=== PATIENT | female | born 1960 | race Two or more races ===

== ENCOUNTER → 2025-04-19 | Outpatient (BNVA) | payer MEDICARE, MEDICAID, SELFPAY | END | disposition home or self-care (01) | PROVIDERS: PCP Student in an Organized Health Care Education/Training Program; Referring Provider Student in an Organized Health Care Education/Training Program; Visit Provider Urology | DX: N32.81 Overactive bladder (principal); E13.51 Other specified diabetes mellitus with diabetic peripheral angiopathy without gangrene; E13.42 Other specified diabetes mellitus with diabetic polyneuropathy; Z87.440 Personal history of urinary (tract) infections; I10 Essential (primary) hypertension; E78.00 Pure hypercholesterolemia, unspecified; E03.9 Hypothyroidism, unspecified | CPT/HCPCS: 81003; 99212; G0463 ==

== ENCOUNTER 2025-05-13 09:34 | Inpatient (IN) | payer MEDICARE, MEDICAID, SELFPAY ==
[2025-05-13] VITALS (9 sets, daily range): BP systolic 86–152; BP diastolic 52–95; PULSE 71–97; RESP 16–24; TEMP 36.6–39; O2SAT 94–98; BMI 32.3
--- NOTE | 2025-05-13 09:52 | XR_ITS ---
Examination: AP chest single view Technique : AP portable supine chest single view Date and time: May 13, 2025 1038 hours INDICATIONS: Coughing shortness of breath today. FINDINGS: Diffuse left lung and mild right base pneumonia Normal heart size Prominent osteopenia IMPRESSION: Bilateral pneumonia, diffuse and significant in the left lung MTDD
--- NOTE | 2025-05-13 09:52 | XR_ITS ---
Examination: CT brain head without contrast. 2-D sagittal coronal reconstructions Date and time of exam:May 13, 2025, 1030 hours INDICATIONS: Altered mental status this morning CTDI: vol (mGy):46.7 DLP: (mGycm):973 Technique: Multiple CT axial sections of the brain have been obtained, 5 mm slice thickness. Contrast has not been administered. 2-D sagittal, coronal reconstructions have been obtained Low dose protocols were performed. One or more of the following dose reduction techniques were used; automated exposure control, adjustment of the mA and/or KV according to patient size, use of iterative reconstruction technique. Findings: No significant ventricular enlargement. Intra-axial or extra-axial hemorrhage density is not seen. No mass effect or midline shift Basal cisterns are not remarkable. Fourth ventricle is midline. Cranial vault intact. Impression: Negative for acute hemorrhage, mass effect or midline shift
--- NOTE | 2025-05-13 09:52 | EKG_ITS ---
[facility] Test Date: 2025-05-13 Pat Name: ALEXANDER BUTLER Department: Room: - Gender: Female [employer] Technician: : 1960 Requested By: Pedro Luis Zavala Order Number: [id number] Reading MD: Pedro Luis Zavala Measurements Intervals [place] Rate: 96 P: 26 [place]: 132 QRS: -39 QRSD: 89 T: -56 QT: 316 QTc: 401 Interpretive Statements SINUS RHYTHM LEFT AXIS DEVIATION [QRS AXIS < -30] PATTERN CONSISTENT WITH PULMONARY DISEASE MODERATE T-WAVE ABNORMALITY, CONSIDER ANTERIOR ISCHEMIA [-0.1+ mV T-WAVE IN V3/V4] Compared to ECG 07/20/2024 12:28:52 Possible ischemia now present T-wave abnormality still present /store/S0/[id number]/ecg/[id number].pdf
--- NOTE | 2025-05-13 09:53 | PD.EDRME ---
Rapid Medical Screening Exam [facility] Arrival date/time: 05/13/25 09:34 64-year-old female with a history of developmentally delayed, type 2 diabetes, presents to the emergency room with a chief complaint of a fever, abnormal baseline, generalized weakness and increased lethargy x 2 days. Caregiver also states that the patient normally walks with a walker and has stopped walking and is now leaning to her left side on her wheelchair. This all began yesterday afternoon. I have greeted and performed a focused initial assessment of this patient. A comprehensive ED assessment and evaluation of the patient, analysis of all test results, and completion of the medical decision making process will be conducted by additional ED providers. Chief Complaint: Dizziness Time Seen by Provider: 05/13/25 09:37 Vital signs: Vital Signs Temperature 102.2 F H 05/13/25 09:49 Pulse Rate 97 05/13/25 09:49 Respiratory Rate 24 H 05/13/25 09:49 Blood Pressure 129/84 05/13/25 09:49 Pulse Oximetry (%) 94 L 05/13/25 09:49 Oxygen Delivery Method Room Air 05/13/25 09:49 Vital signs reviewed by provider: Yes
[2025-05-13] MEDS: ACETAMINOPHEN 500 MG TABLET 1000 MG PO (10:21)
--- NOTE | 2025-05-13 10:34 | PD.EDADULT ---
ED General RME/HPI General Chief complaint: Dizziness Stated complaint: DIZZY, HIGH HEART RATE, LOW O2 SINCE YESTERDAY Time Seen by Provider: 05/13/25 09:37 Arrival date/time: 05/13/25 09:34 Limitations: no limitations RME / HPI RME / HPI narrative: 05/13/25 09:34 64-year-old female with a history of developmentally delayed, type 2 diabetes, presents to the emergency room with a chief complaint of a fever, abnormal baseline, generalized weakness and increased lethargy x 2 days. Caregiver also states that the patient normally walks with a walker and has stopped walking and is now leaning to her left side on her wheelchair. This all began yesterday afternoon. I have greeted and performed a focused initial assessment of this patient. A comprehensive ED assessment and evaluation of the patient, analysis of all test results, and completion of the medical decision making process will be conducted by additional ED providers. DR. MCMAHAN MAIN ED EVALUATION: 64 year old female with history of medication induced Parkinson's, intellectual disability, hypothyroidism, diabetes, peripheral vascular disease, osteoarthritis presents to the ED brought in by caregiver for multiple complaints. Per the caregiver, the patient urinated on herself twice last night which is unusual for her, has had a change in her demeanor, and is stumbling more than normal . Additionally reported a change in her vital signs; at baseline HR is mid 70s and today was 104, saturating 91-92% on room air and at baseline is 98-99%. No fevers measured at home. No vomiting, diarrhea, or appearance of painful urination. Related Data Home Medications ?Medication ?Instructions ?Recorded ?Confirmed amlodipine 5 mg tablet 5 mg PO DAILY 03/25/23 04/19/25 divalproex 250 mg tablet,delayed 500 mg PO BID BEHAVIOR 03/25/23 04/19/25 release docusate sodium 100 mg capsule 100 mg PO BID 03/25/23 04/19/25 levothyroxine 100 mcg tablet 100 mcg PO DAILY 03/25/23 04/19/25 loratadine 10 mg tablet 10 mg PO DAILY 03/25/23 04/19/25 metformin 500 mg tablet 500 mg PO BID 03/25/23 04/19/25 mirtazapine 30 mg tablet 15 mg PO HS 03/25/23 04/19/25 tmqwaacc-bed-uzqla ac 400 1 tab PO DAILY 03/25/23 04/19/25 mcg-calcium carb 500 mg-vit K1 20 mcg tablet (Women's 50 Plus Multivitamin) oxybutynin chloride 5 mg 5 mg PO DAILY 03/25/23 04/19/25 tablet,extended release 24 hr quetiapine 100 mg tablet 50 mg PO BID 03/25/23 04/19/25 sertraline 100 mg tablet 50 mg PO DAILY 03/25/23 04/19/25 simvastatin 20 mg tablet 20 mg PO HS 03/25/23 04/19/25 alprazolam 0.25 mg tablet (Xanax) 0.25 mg PO BID PRN Anxiety 07/20/24 04/19/25 buspirone 5 mg tablet 5 mg PO BID 07/20/24 04/19/25 potassium chloride 8 mEq 8 meq PO QDAY 07/20/24 04/19/25 tablet,extended release (Klor-Con) risperidone 0.5 mg tablet 0.5 mg PO BID 07/20/24 04/19/25 sodium chloride 1 gram tablet 1,000 mg PO BID 07/20/24 04/19/25 Previous Rx's ?Medication ?Instructions ?Recorded lactulose 10 gram/15 mL oral 20 g (30 mL) PO BID PRN 10/18/23 solution constipation #237 mL Allergies Allergy/AdvReac Type Severity Reaction Status Date / Time No Known Allergies Allergy Verified 05/13/25 09:38 Review of Systems Review of Systems Systems Reviewed: All systems reviewed, normal except as documented Past Medical History Past Medical History CARDIAC: Positive Cardiac Disorders, Peripheral Vascular Disease, Hypercholesterolemia and Hypertension MUSCULOSKELETAL: Positive Musculoskeletal Disorders and Arthritis (OSTEO) ENT: Positive Cataracts (not mature) ENDOCRINE: Positive Endocrine Disorders, Diabetes Mellitus Type 2 and Hypothyroidism HEMATOLOGIC: Positive Blood Disorders and Anemia (IRON DEFICIENCY) PSYCHO/SOCIAL: Positive Bipolar Disorder, Depression and Anxiety (PANIC DISORDER) OTHER HISTORY: Positive Developmental Delay (Mild intellectual disability) Family History FAMILY HISTORY: Negative Family Psychiatric Problems, Family Respiratory Disorders, Family Cardiac Disorders, Family Gastrointestinal Problems, Family Cancer, Family Surgery or Family Anesthesia Reaction Social History SMOKING STATUS: Never smoker ED Exam General Limitations: Present no limitations General appearance: Present alert and in no apparent distress Head Head exam: Present atraumatic Eye Eye exam: Present normal appearance, PERRL and EOMI ENT ENT exam: Present normal exam, normal oropharynx and mucous membranes moist Neck Neck exam: Present normal inspection, full ROM and trachea midline Chest Chest inspection: Present normal inspection and symmetric chest wall rise Respiratory Respiratory exam: Present other (Crackles left base ) Cardiovascular Cardiovascular exam: Present regular rate, normal rhythm and normal heart sounds Abdominal Exam Abdominal exam: Present soft and normal bowel sounds Extremities Exam Extremities exam: Present normal inspection and full ROM Back Exam Back exam: Present normal inspection and full ROM Neurological Exam Neurological exam: Present alert, CN II-XII intact and other (Baseline developmentally delayed ) Psychiatric Psychiatric exam: Present normal affect and normal mood Skin Skin exam: Present warm, dry, intact and normal color Course Quality Measures none Orders Category Date Time Status Bedside COVID-19 Antigen Test NOW Care 05/13/25 09:52 Active Bedside Influenza A&B Antigen Test NOW Care 05/13/25 09:52 Completed COVID-19 Screening Questionnaire NOW Care 05/13/25 13:22 Active Decision to Admit X1 Care 05/13/25 13:22 Completed EKG (ED ONLY) *Do not use* NOW Care 05/13/25 09:[address] head/brain wo con Stat Exams 05/13/25 09:52 Completed EKG (ED Only) Stat Exams 05/13/25 09:52 Draft XR chest 1V portable Stat Exams 05/13/25 09:52 Completed B-Type Natriuretic Peptide Stat Lab 05/13/25 10:20 Completed Blood Culture (Lab) Stat Lab 05/13/25 10:20 Received CBC Stat Lab 05/13/25 10:20 Completed CMP [Comprehensive Metabolic Panel] Stat Lab 05/13/25 10:20 Completed Lactate (Lactic Acid) Stat Lab 05/13/25 10:20 Completed Lactic Acid, 3 HR Stat Lab 05/13/25 13:59 Completed Partial Thromboplastin Time Stat Lab 05/13/25 10:20 Completed Procalcitonin Stat Lab 05/13/25 10:20 Completed Prothrombin Time with INR Stat Lab 05/13/25 10:20 Completed Troponin I Stat Lab 05/13/25 10:20 Completed Urinalysis, C/S if Indicated Stat Lab 05/13/25 12:08 Completed Urine Culture Stat Lab 05/13/25 12:08 Received Acetaminophen Tab [Tylenol ES Tab] Med 05/13/25 09:55 Discontinued 1,000 mg PO X1 ONE cefTRIAXone [Rocephin] 2 gm Med 05/13/25 13:13 Discontinued SODIUM CHLORIDE 0.9% (Popper) [Ns 0.9% (P)] 50 ml IV X1 Vital Signs Vital signs: Vital Signs Temperature 102.2 F H 05/13/25 09:49 Pulse Rate 97 05/13/25 09:49 Respiratory Rate 24 H 05/13/25 09:49 Blood Pressure 129/84 05/13/25 09:49 Pulse Oximetry (%) 94 L 05/13/25 09:49 Oxygen Delivery Method Room Air 05/13/25 09:49 Pulse ox is 94% on room air which is adequate. Discharge Plan Plan Patient Disposition: Admit Acute Care w/in Hospital Problem List Clinical Impression: Acute febrile illness, Tachycardia MDM Narrative [facility] hospital course: Ellie Coronel am scribing for and in the presence of Dr. Mcmahan. Clinical Information Provided by guardian (caregiver) Medical Records Reviewed [facility] I reviewed ED visit on 10/18/2023 Meds/Rx Considered, not Ordered None Labs/Rad/Tests considered, not Ordered None Chronic Illness/Social Conditions which may negatively complicate care or outcome(s)-explain: Developmentally delayed EKG Interpretation EKG #1: Date/time of EK05/13/25 10:57 AM EKG interpretation: NSR, rate 96, left axis deviation, no STEMI. Lab Interpretation Labs: interpreted by tn Lab(s) interpretation(s): No leukocytosis Elevated lactic acid at 3.2, procalcitonin within normal range UA is positive for infection Imaging Radiology reports / interpretation(s): Ordering Physician: Pedro Luis Torres Date of Service: 05/13/25 Procedure(s): XR chest 1V portable Accession Number(s): [id number] cc: Pedro Luis Torres; Pedro Ruby MD~ Examination: AP chest single view Technique : AP portable supine chest single view Date and time: May 13, 2025 1038 hours INDICATIONS: Coughing shortness of breath today. FINDINGS: Diffuse left lung and mild right base pneumonia Normal heart size Prominent osteopenia IMPRESSION: Bilateral pneumonia, diffuse and significant in the left lung Dictated By: Pedro Ruby MD Signed By: <Electronically signed by Pedro Ruby MD in OV> 05/13/25 1040 Ordering Physician: Pedro Luis Torres Date of Service: 05/13/25 Procedure(s): CT head/brain wo con Accession Number(s): [id number] cc: Pedro Luis Torres; Pdero Ruby MD~ Examination: CT brain head without contrast. 2-D sagittal coronal reconstructions Date and time of exam:May 13, 2025, 1030 hours INDICATIONS: Altered mental status this morning CTDI: vol (mGy):46.7 DLP: (mGycm):973 Technique: Multiple CT axial sections of the brain have been obtained, 5 mm slice thickness. Contrast has not been administered. 2-D sagittal, coronal reconstructions have been obtained Low dose protocols were performed. One or more of the following dose reduction techniques were used; automated exposure control, adjustment of the mA and/or KV according to patient size, use of iterative reconstruction technique. Findings: No significant ventricular enlargement. Intra-axial or extra-axial hemorrhage density is not seen. No mass effect or midline shift Basal cisterns are not remarkable. Fourth ventricle is midline. Cranial vault intact. Impression: Negative for acute hemorrhage, mass effect or midline shift Dictated By: Pedro Ruby MD Signed By: <Electronically signed by Pedro Ruby MD in OV> 05/13/25 1045 Medication Administration(s) Medication Administration History Acetaminophen (Acetaminophen 325 Mg Tablet) 650 mg PO Q6H PRN PRN Reason: Fever >101.5 Stop: 06/12/25 13:50 Albuterol/Ipratropium (Albuterol/Ipratropium (Duoneb) Rt Angely 3 Ml Nebu) 3 ml INH Q6HRRT PRN PRN Reason: SHORTNESS OF BREATH Stop: 06/12/25 18:59 Amlodipine Besylate (Amlodipine Besylate 2.5 Mg Tablet) 2.5 mg PO QDAY REPLACED BY [facility] Stop: 06/13/25 08:59 Divalproex Sodium (Divalproex Sod Dr 500 Mg Tablet.Dr) 500 mg PO BID REPLACED BY [facility] Stop: 06/12/25 20:59 Docusate Sodium (Docusate Sod 100 Mg Capsule) 100 mg PO BID REPLACED BY [facility]; Protocol Stop: 06/12/25 20:59 Doxycycline Hyclate (Doxycycline 100 Mg Tablet) 100 mg PO BID LEANDRA Stop: 05/20/25 14:44 Last Admin: 05/13/25 14:45 Dose: 100 mg Documented By: ASHLEIGH Enoxaparin Sodium (Enoxaparin Sod Inj 40 Mg/0.4 Ml Syringe) 40 mg SC QDAY REPLACED BY [facility] Stop: 05/27/25 13:59 Last Admin: 05/13/25 14:20 Dose: Not Given Documented By: ASHLEIGH Non-Admin Reason: Patient Refused Hydroxyzine HCl (Hydroxyzine Hcl 10 Mg Tablet) 10 mg PO Q8H PRN PRN Reason: ANXIETY Stop: 06/12/25 14:14 Levothyroxine Sodium (Levothyroxine Sodium 88 Mcg Tablet) 88 mcg PO ACBR REPLACED BY [facility] Stop: 06/13/25 05:59 Mirtazapine (Mirtazapine 15 Mg Tablet) 15 mg PO QPM LEANDRA Stop: 06/12/25 20:59 Ondansetron HCl (Ondansetron Inj 2 Mg/Ml Inj 2 Ml) 4 mg IVP Q6H PRN; Protocol PRN Reason: NAUSEA OR VOMITING Stop: 06/12/25 13:50 Pantoprazole Sodium (Pantoprazole 40 Mg Tablet) 40 mg PO QDAY LEANDRA Stop: 06/13/25 08:59 Quetiapine Fumarate (Quetiapine Fumarate 25 Mg Tablet) 50 mg PO QPM LEANDRA Stop: 06/12/25 20:59 Quetiapine Fumarate (Quetiapine Fumarate 25 Mg Tablet) 25 mg PO QAM REPLACED BY [facility] Stop: 06/13/25 08:59 Risperidone (Risperidone 0.5 Mg Tablet) 0.5 mg PO BID LEANDRA Stop: 06/12/25 20:59 Sertraline HCl (Sertraline Hcl 25 Mg Tablet) 50 mg PO QAM LEANDRA Stop: 06/13/25 08:59 Sodium Chloride (Sodium Chloride 1 Gm Tablet) 1 gm PO BID LEANDRA Stop: 06/12/25 20:59 Discontinued Medications Acetaminophen (Acetaminophen 500 Mg Tablet) 1,000 mg PO X1 ONE Stop: 05/13/25 09:56 Last Admin: 05/13/25 10:21 Dose: 1,000 mg Documented By: SYLVIA Ceftriaxone Sodium 2 gm/ (Sodium Chloride) 50 mls @ 100 mls/hr IV X1 ONE Stop: 05/13/25 13:42 Last Infusion: 05/13/25 15:24 Dose: Infused Documented By: Admin: 05/13/25 13:25 Dose: 100 mls/hr Documented By: ASHLEIGH Sodium Chloride (Sodium Chloride Rt 10% 15 Ml Nebu) 5 ml INH X1 ONE Stop: 05/13/25 14:38 See above Diagnosis Most likely dx, and/or detailed dx discussion: Acute febrile illness Tachycardia Dispositon Disposition: Admit
[2025-05-13 10:35] LABS: Lactate (Lactic Acid) 3.2 mMol/L (0.4-2.0)
[2025-05-13 10:37] LABS: Basophils # (Auto) 0.0 Thou/mm3 (0.0-0.2); Basophils % (Auto) 0 % (0-2.5); Eosinophils # (Auto) 0.0 Thou/mm3 (0.0-0.5); Eosinophils % (Auto) 0 % (0-10); Hematocrit 40.1 % (36.0-46.0); Hemoglobin 13.7 g/dL (12.0-16.0); Immature Granulocytes Auto 0.03 Thou/mm3 (0.00-0.00); Lymphocytes # (Auto) 1.0 Thou/mm3 (1.0-4.8); Lymphocytes % (Auto) 9 % (10-50); Mean Corpuscular HGB Conc 34.2 g/dl (31.0-37.0); Mean Corpuscular Hemoglobin 30.9 pg (25.0-35.0); Mean Corpuscular Volume 90 fL (80-100); Monocytes # (Auto) 1.7 Thou/mm3 (0.0-0.8); Monocytes % (Auto) 16 % (0-12); Neutrophils # (Auto) 8.2 Thou/mm3 (1.8-7.7); Neutrophils % (Auto) 75 % (37-80); Nucleated Red Blood Cell # 0.00 Thou/mm3 (0.00-0.00); Nucleated Red Blood Cell % 0 /100 WBC (0); Platelet Count 158 Thou/mm3 (140-440); RDW Standard Deviation 41.3 fL (36.4-46.3); Red Blood Count 4.44 Miln/mm3 (4.00-5.20); White Blood Count 10.9 Thou/mm3 (3.6-11.0)
[2025-05-13 10:53] LABS: INR 1.0 (0.9-1.3); Partial Thromboplastin Time 27.0 Seconds (22.0-36.0); Prothrombin Time 11.3 Seconds (9.0-12.2)
[2025-05-13 10:56] LABS: B-Type Natriuretic Peptide < 20 pg/mL (0-100)
[2025-05-13 11:03] LABS: Alanine Aminotransferase < 7 U/L (10-49); Albumin, Serum 4.2 gm/dL (3.4-4.8); Albumin/Globulin Ratio 1.4 (1.2-2.2); Alkaline Phosphatase 77 U/L (46-116); Anion Gap 13 (7-16); Aspartate Amino Transferase 18 U/L (0-34); BUN/Creatinine Ratio 13 Ratio (12-20); Bilirubin,Total 0.3 mg/dL (0.3-1.2); Blood Urea Nitrogen 10 mg/dL (9-23); Calcium 9.5 mg/dL (8.3-10.6); Calcium (Corrected) 9.5 mg/dL (8.5-10.1); Carbon Dioxide 25.5 mMol/L (20.0-31.0); Chloride 103 mMol/L (98-107); Creatinine (Component) 0.8 mg/dL (0.6-1.3); Estimated Creatinine Clearance 54.3 mL/min (>60); Globulin 3.0 gm/dL (2.3-3.5); Glucose 168 mg/dL (74-106); Osmolality,Calculated 284 (275-295); Potassium 4.0 mMol/L (3.4-5.1); Procalcitonin 0.29 ng/ml (0.0-0.49); Sodium 141 mMol/L (136-145); Total Protein 7.2 gm/dL (5.7-8.2); Troponin I < 0.002 ng/mL (0.0-0.045); eGFR > 60 See Note
[2025-05-13 12:21] LABS: Collection Type, Urine Clean Catch
[2025-05-13 12:45] LABS: Bacteria,Urine 1+; Bilirubin,Urine Negative (Negative); Blood,Urine 2+ (Negative); Color,Urine Yellow (Lt Yel-Yel); Glucose, Urine Negative (Negative); Ketones,Urine Trace (Negative); Leukocyte Esterase,Urine Positive (Negative); Nitrite,Urine Positive (Negative); PH,Urine 6.0 (5.0-7.0); Protein,Urine 1+ (Neg - Trace); RBC,Urine 17 /hpf (0-3); Specific Gravity,Urine 1.020 (1.001-1.035); Squamous Epithelial Cell,Urine 1 /hpf (0-5); Urobilinogen,Urine Negative mg/dL (0.0-1.0); WBC,Urine 1433 /hpf (0-5)
[2025-05-13 12:52] LABS: Clarity,Urine Cloudy (Clear/Hazy); Culture Indicated,Urine Yes
[2025-05-13] MEDS: cefTRIAXone 2 GM in SODIUM CHLORIDE 0.9% (Popper) 50 ML IV (13:25)
[2025-05-13 13:33] LABS: Reflex Lactate? Y
[2025-05-13 14:02] LABS: Lactic Acid, 3 HR 2.6 mMol/L (0.4-2.0)
--- NOTE | 2025-05-13 14:16 | PD.HHHP ---
Documentation for date of: 05/13/25 HPI - Hospitalist History of Present Illness History of present illness: Patient is unfortunate 64-year-old female with history of developmental delay, hypothyroidism, essential hypertension, hyperlipidemia, bipolar disorder, recent possible diagnosis of parkinsonism and dementia, who was brought in to our ER after 1 day history of fever, dizziness, confusion. Her caregiver Rocío is at bedside, patient is currently not able to provide appropriate history. Her eyes are closed she will wake up and answer questions shortly go back to sleep. Per caregiver she was recently seen at primary care physician office couple of weeks ago diagnosed with urinary tract infection prescribed Keflex 500 mg every 8 hours as well as Pyridium, took treatment improved but apparently last couple days has been getting worse again. She is normally more active able to ambulate but today when caregiver brought her to the emergency room patient was having hard time walking to the ER. Also was having chills no nausea vomiting diarrhea chest pain trouble breathing palpitations any known sick contacts. Per caregiver patient does have some cough last couple of days. Caregiver brought their facility chart for her, no POLST found no healthcare directives or living will?that I could find. Per caregiver patient was diagnosed parkinsonism likely medication induced with all her antipsychotics/antidepressants. Past medical history/social history/family/surgical history reviewed please see the chart Review of Systems Review of Systems Narrative Review of Systems: Review of system limited due to encephalopathy, otherwise please see above under HPI for pertinent positives negatives Meds Home Medications and Allergies Home Medications ?Medication ?Instructions ?Recorded ?Confirmed ?Type amlodipine 5 mg tablet 5 mg PO DAILY 03/25/23 04/19/25 History divalproex 250 mg tablet,delayed 500 mg PO BID BEHAVIOR 03/25/23 04/19/25 History release docusate sodium 100 mg capsule 100 mg PO BID 03/25/23 04/19/25 History levothyroxine 100 mcg tablet 100 mcg PO DAILY 03/25/23 04/19/25 History loratadine 10 mg tablet 10 mg PO DAILY 03/25/23 04/19/25 History metformin 500 mg tablet 500 mg PO BID 03/25/23 04/19/25 History mirtazapine 30 mg tablet 15 mg PO HS 03/25/23 04/19/25 History ljljvelk-gik-nglzj ac 400 1 tab PO DAILY 03/25/23 04/19/25 History mcg-calcium carb 500 mg-vit K1 20 mcg tablet (Women's 50 Plus Multivitamin) oxybutynin chloride 5 mg 5 mg PO DAILY 03/25/23 04/19/25 History tablet,extended release 24 hr quetiapine 100 mg tablet 50 mg PO BID 03/25/23 04/19/25 History sertraline 100 mg tablet 50 mg PO DAILY 03/25/23 04/19/25 History simvastatin 20 mg tablet 20 mg PO HS 03/25/23 04/19/25 History alprazolam 0.25 mg tablet (Xanax) 0.25 mg PO BID PRN Anxiety 07/20/24 04/19/25 History buspirone 5 mg tablet 5 mg PO BID 07/20/24 04/19/25 History potassium chloride 8 mEq 8 meq PO QDAY 07/20/24 04/19/25 History tablet,extended release (Klor-Con) risperidone 0.5 mg tablet 0.5 mg PO BID 07/20/24 04/19/25 History sodium chloride 1 gram tablet 1,000 mg PO BID 07/20/24 04/19/25 History Allergies Allergy/AdvReac Type Severity Reaction Status Date / Time No Known Allergies Allergy Verified 05/13/25 09:38 Exam Vital Signs Temp Pulse Resp BP Pulse Ox O2 Del Method 98.7 F 71 18 93/52 L 98 Room Air 05/13/25 13:30 05/13/25 13:30 05/13/25 13:30 05/13/25 13:36 05/13/25 13:30 05/13/25 13:30 Narrative GENERAL: seems to be in NAD, sleepy, HEENT: Head NC/A, PERRL CARDIOVASCULAR: RRR, no m/r/g/ RESPIRATORY: some wet rhonchi bilateral lower lung glaser, no wheezing GASTROINTESTINAL: Soft, non tender, no rebound tenderness INTEGUMENTARY: No jaundice, no apparent rash NEUROLOGICAL: unable to assess full neuroexam PSYCHIATRIC: Alert, not agitated MSK: No apparent joint effusion appreciated Results - Hospitalist Labs Diagrams: 05/13/25 10:20 05/13/25 10:20 Labs: Short CBC 05/13/25 Range/Units 10:20 WBC 10.9 (3.6-11.0) Thou/mm3 Hgb 13.7 (12.0-16.0) g/dL Hct 40.1 (36.0-46.0) % Plt Count 158 (140-440) Thou/mm3 BMP 05/13/25 10:20 Sodium 141 Potassium 4.0 Chloride 103 Carbon Dioxide 25.5 BUN 10 Creatinine 0.8 Glucose 168 H Calcium 9.5 Cardiac Enzymes 05/13/25 Range/Units 10:20 Troponin I < 0.002 (0.0-0.045) ng/mL Liver Function 05/13/25 Range/Units 10:20 Total Bilirubin 0.3 (0.3-1.2) mg/dL AST 18 (0-34) U/L ALT < 7 L (10-49) U/L Alkaline Phosphatase 77 (46-116) U/L Albumin 4.2 (3.4-4.8) gm/dL Urine 05/13/25 Range/Units 12:08 Urine Color Yellow (Lt Yel-Yel) Urine Clarity Cloudy A (Clear/Hazy) Urine pH 6.0 (5.0-7.0) Ur Specific [place] 1.020 (1.001-1.035) Urine Protein 1+ A (Neg - Trace) Urine Glucose (UA) Negative (Negative) Assessment & Plan -Hospitalist Additional Assessment Patient is 64-year-old female history developmental delay, bipolar disorder, hypothyroidism, hypertension, hyperlipidemia possible recent diagnosis of parkinsonism and dementia was brought in by her facility where she states that with fevers, admitted for sepsis requiring further evaluation and management. Blood cultures urine culture obtained patient given ceftriaxone 2 g in the emergency room, admitted for further workup. Had unremarkable CT abdomen. Sepsis, present admission without septic shock due to urinary tract infection as well as possible bacterial pneumonia Bilateral lower lung bacterial pneumonia suspected, community-acquired, likely gram-positive cocci Urinary tract infection, suspect cystitis present on admission not associated urinary catheter suspect gram-negative bacilli History of developmental delay Hypothyroidism acute encephalopathy suspect infectious due to above Essential hypertension Hyperlipidemia Lactic acidosis due to above Suspect bipolar disorder Anxiety -Pending urine 2 sets of blood cultures, continue 1 g ceftriaxone daily add azithromycin for atypical pneumonia coverage. Obtain sputum culture if she can make 1. Check TSH, free T4, ammonia level. Speech therapy evaluation will tentatively place her on dysphagia diet Continue appropriate home medications-, will hold oxybutynin for now due to encephalopathy - Monitor mental status and vitals closely. - case checker to help with disposition - physical therapy DVT prophylaxis?Lovenox subcu Pantoprazole for GI prophylaxis Full code?assumed, follow-up with facility/POLST or advance directives if there are some, anticipate stay 2 days for Disposition: Discharge back to facility, might need home health upon discharge. Quality Measures Quality Measures none
--- NOTE | 2025-05-13 14:27 | PD.HHHP ---
Documentation for date of: 05/13/25 HPI - Hospitalist History of Present Illness History of present illness: Patient is unfortunate 64-year-old female with history of developmental delay, hypothyroidism, essential hypertension, hyperlipidemia, bipolar disorder, recent possible diagnosis of parkinsonism and dementia, who was brought in to our ER after 1 day history of fever, dizziness, confusion. Her caregiver Rocío is at bedside, patient is currently not able to provide appropriate history. Her eyes are closed she will wake up and answer questions shortly go back to sleep. Per caregiver she was recently seen at primary care physician office couple of weeks ago diagnosed with urinary tract infection prescribed Keflex 500 mg every 8 hours as well as Pyridium, took treatment improved but apparently last couple days has been getting worse again. She is normally more active able to ambulate but today when caregiver brought her to the emergency room patient was having hard time walking to the ER. Also was having chills no nausea vomiting diarrhea chest pain trouble breathing palpitations any known sick contacts. Per caregiver patient does have some cough last couple of days. Caregiver brought their facility chart for her, no POLST found no healthcare directives or living will?that I could find. Per caregiver patient was diagnosed parkinsonism likely medication induced with all her antipsychotics/antidepressants. Past medical history/social history/family/surgical history reviewed please see the chart Meds Home Medications and Allergies Home Medications ?Medication ?Instructions ?Recorded ?Confirmed ?Type amlodipine 5 mg tablet 5 mg PO DAILY 03/25/23 04/19/25 History divalproex 250 mg tablet,delayed 500 mg PO BID BEHAVIOR 03/25/23 04/19/25 History release docusate sodium 100 mg capsule 100 mg PO BID 03/25/23 04/19/25 History levothyroxine 100 mcg tablet 100 mcg PO DAILY 03/25/23 04/19/25 History loratadine 10 mg tablet 10 mg PO DAILY 03/25/23 04/19/25 History metformin 500 mg tablet 500 mg PO BID 03/25/23 04/19/25 History mirtazapine 30 mg tablet 15 mg PO HS 03/25/23 04/19/25 History ujbuxczj-lbw-iswur ac 400 1 tab PO DAILY 03/25/23 04/19/25 History mcg-calcium carb 500 mg-vit K1 20 mcg tablet (Women's 50 Plus Multivitamin) oxybutynin chloride 5 mg 5 mg PO DAILY 03/25/23 04/19/25 History tablet,extended release 24 hr quetiapine 100 mg tablet 50 mg PO BID 03/25/23 04/19/25 History sertraline 100 mg tablet 50 mg PO DAILY 03/25/23 04/19/25 History simvastatin 20 mg tablet 20 mg PO HS 03/25/23 04/19/25 History alprazolam 0.25 mg tablet (Xanax) 0.25 mg PO BID PRN Anxiety 07/20/24 04/19/25 History buspirone 5 mg tablet 5 mg PO BID 07/20/24 04/19/25 History potassium chloride 8 mEq 8 meq PO QDAY 07/20/24 04/19/25 History tablet,extended release (Klor-Con) risperidone 0.5 mg tablet 0.5 mg PO BID 07/20/24 04/19/25 History sodium chloride 1 gram tablet 1,000 mg PO BID 07/20/24 04/19/25 History Allergies Allergy/AdvReac Type Severity Reaction Status Date / Time No Known Allergies Allergy Verified 05/13/25 09:38 Exam Vital Signs Temp Pulse Resp BP Pulse Ox O2 Del Method 98.7 F 71 18 93/52 L 98 Room Air 05/13/25 13:30 05/13/25 13:30 05/13/25 13:30 05/13/25 13:36 05/13/25 13:30 05/13/25 13:30 Results - Hospitalist Labs Diagrams: 05/13/25 10:20 05/13/25 10:20 Labs: Short CBC 05/13/25 Range/Units 10:20 WBC 10.9 (3.6-11.0) Thou/mm3 Hgb 13.7 (12.0-16.0) g/dL Hct 40.1 (36.0-46.0) % Plt Count 158 (140-440) Thou/mm3 BMP 05/13/25 10:20 Sodium 141 Potassium 4.0 Chloride 103 Carbon Dioxide 25.5 BUN 10 Creatinine 0.8 Glucose 168 H Calcium 9.5 Cardiac Enzymes 05/13/25 Range/Units 10:20 Troponin I < 0.002 (0.0-0.045) ng/mL Liver Function 05/13/25 Range/Units 10:20 Total Bilirubin 0.3 (0.3-1.2) mg/dL AST 18 (0-34) U/L ALT < 7 L (10-49) U/L Alkaline Phosphatase 77 (46-116) U/L Albumin 4.2 (3.4-4.8) gm/dL Urine 05/13/25 Range/Units 12:08 Urine Color Yellow (Lt Yel-Yel) Urine Clarity Cloudy A (Clear/Hazy) Urine pH 6.0 (5.0-7.0) Ur Specific [place] 1.020 (1.001-1.035) Urine Protein 1+ A (Neg - Trace) Urine Glucose (UA) Negative (Negative) Assessment & Plan -Hospitalist Additional Assessment Patient is 64-year-old female history developmental delay, bipolar disorder, hypothyroidism, hypertension, hyperlipidemia possible recent diagnosis of parkinsonism and dementia was brought in by her facility where she states that with fevers, admitted for sepsis requiring further evaluation and management. Blood cultures urine culture obtained patient given ceftriaxone 2 g in the emergency room, admitted for further workup. Had unremarkable CT abdomen. Sepsis, present admission without septic shock due to urinary tract infection as well as possible bacterial pneumonia Bilateral lower lung bacterial pneumonia suspected, community-acquired, likely gram-positive cocci Urinary tract infection, suspect cystitis present on admission not associated urinary catheter suspect gram-negative bacilli History of developmental delay Hypothyroidism acute encephalopathy suspect infectious due to above Essential hypertension Hyperlipidemia Lactic acidosis due to above Suspect bipolar disorder Anxiety -Pending urine 2 sets of blood cultures, continue 1 g ceftriaxone daily add azithromycin for atypical pneumonia coverage. Obtain sputum culture if she can make 1. Check TSH, free T4, ammonia level. Speech therapy evaluation will tentatively place her on dysphagia diet Continue appropriate home medications-, will hold oxybutynin for now due to encephalopathy - Monitor mental status and vitals closely. - returned case inspector to help with disposition - physical therapy - Repeat lactic acid better with hydration resume amlodipine at half dose only starting tomorrow 2.5 mg daily, - DVT prophylaxis?Lovenox subcu Pantoprazole for GI prophylaxis Full code?assumed, follow-up with facility/POLST or advance directives if there are some, anticipate stay 2 days for Disposition: Discharge back to facility, might need home health upon discharge. Quality Measures Quality Measures none
[2025-05-13] MEDS: DOXYCYCLINE 100 MG TABLET PO ×2 (14:45→20:28)
[2025-05-13 15:10] LABS: Ammonia < 10 uMol/L (11-32)
[2025-05-13 15:16] LABS: Free T4 (Free Thyroxine) 1.55 ng/dL (0.89-1.76); Procalcitonin 0.39 ng/ml (0.0-0.49); Thyroid Stimulating Hormone 0.17 uIU/mL (0.55-4.78)
--- NOTE | 2025-05-13 15:27 | PC.SS ---
Patient is a 64 year old female presenting to the hospital for sepsis uti. RACING CAR DRIVER met with patient, at bedside was staff from [facility]. Patient confirmed that she is from [facility]. Staff from [facility] stated patient is a resident there, she utilizes a cane, and needs assistance from staff to complete ADL?s. Patients guardian and medical decision maker is Clarissa Michael PH: [phone]. Patients PCP is Dr. Hedrick, last appointment was 05/12/25 and pharmacy of choice is [facility]. Once patient is medically clear she will return to [facility] and they will provide transportation [facility]. ? PCP: Dr. Hedrick Decision maker: Clarissa Michael PH: [phone] D/C: Home
[2025-05-13] MEDS: ACETAMINOPHEN 325 MG TABLET 650 MG PO (18:31)
[2025-05-13] MEDS: DIVALPROEX SOD DR 500 MG TABLET.DR PO (20:29)
[2025-05-13] MEDS: SODIUM CHLORIDE 1 GM TABLET PO (20:29)
[2025-05-13] MEDS: DOCUSATE SOD 100 MG CAPSULE PO (20:29)
[2025-05-13] MEDS: MIRTAZAPINE 15 MG TABLET PO (20:29)
[2025-05-14] VITALS (11 sets, daily range): BP systolic 124–151; BP diastolic 66–92; PULSE 81–108; RESP 17–18; TEMP 36.4–37.8; O2SAT 92–99
[2025-05-14] MEDS: SODIUM CHLORIDE RT 10% 15 ML NEBU 5 ML INH ×2 (02:35→21:30)
[2025-05-14] MEDS: LEVOTHYROXINE SODIUM 88 MCG TABLET PO (05:03)
[2025-05-14 05:38] LABS: Basophils # (Auto) 0.0 Thou/mm3 (0.0-0.2); Basophils % (Auto) 0 % (0-2.5); Eosinophils # (Auto) 0.0 Thou/mm3 (0.0-0.5); Eosinophils % (Auto) 0 % (0-10); Hematocrit 36.6 % (36.0-46.0); Hemoglobin 12.5 g/dL (12.0-16.0); Immature Granulocytes Auto 0.07 Thou/mm3 (0.00-0.00); Lymphocytes # (Auto) 1.2 Thou/mm3 (1.0-4.8); Lymphocytes % (Auto) 7 % (10-50); Mean Corpuscular HGB Conc 34.2 g/dl (31.0-37.0); Mean Corpuscular Hemoglobin 31.0 pg (25.0-35.0); Mean Corpuscular Volume 91 fL (80-100); Monocytes # (Auto) 2.9 Thou/mm3 (0.0-0.8); Monocytes % (Auto) 17 % (0-12); Neutrophils # (Auto) 12.7 Thou/mm3 (1.8-7.7); Neutrophils % (Auto) 75 % (37-80); Nucleated Red Blood Cell # 0.00 Thou/mm3 (0.00-0.00); Nucleated Red Blood Cell % 0 /100 WBC (0); Platelet Count 134 Thou/mm3 (140-440); RDW Standard Deviation 41.7 fL (36.4-46.3); Red Blood Count 4.03 Miln/mm3 (4.00-5.20); White Blood Count 16.9 Thou/mm3 (3.6-11.0)
[2025-05-14 06:24] LABS: Alanine Aminotransferase < 7 U/L (10-49); Albumin, Serum 3.6 gm/dL (3.4-4.8); Alkaline Phosphatase 68 U/L (46-116); Anion Gap 13 (7-16); Aspartate Amino Transferase 11 U/L (0-34); BUN/Creatinine Ratio 17 Ratio (12-20); Bilirubin,Direct < 0.1 mg/dL (0.0-0.3); Bilirubin,Total 0.3 mg/dL (0.3-1.2); Blood Urea Nitrogen 10 mg/dL (9-23); Calcium 9.0 mg/dL (8.3-10.6); Carbon Dioxide 23.7 mMol/L (20.0-31.0); Chloride 102 mMol/L (98-107); Creatinine (Component) 0.6 mg/dL (0.6-1.3); Estimated Creatinine Clearance 72.3 mL/min (>60); Glucose 174 mg/dL (74-106); Magnesium 1.9 mg/dL (1.6-2.6); Osmolality,Calculated 280 (275-295); Potassium 3.6 mMol/L (3.4-5.1); Sodium 139 mMol/L (136-145); Total Protein 6.1 gm/dL (5.7-8.2); eGFR > 60 See Note
[2025-05-14] MEDS: ENOXAPARIN SOD INJ 40 MG/0.4 ML SYRINGE SC (08:30)
[2025-05-14] MEDS: PANTOPRAZOLE 40 MG TABLET PO (08:30)
[2025-05-14] MEDS: SERTRALINE HCL 25 MG TABLET 50 MG PO (08:30)
[2025-05-14] MEDS: DOXYCYCLINE 100 MG TABLET PO ×2 (08:30→20:20)
[2025-05-14] MEDS: DOCUSATE SOD 100 MG CAPSULE PO ×2 (08:31→20:20)
[2025-05-14] MEDS: SODIUM CHLORIDE 1 GM TABLET PO ×2 (08:31→20:20)
[2025-05-14] MEDS: DIVALPROEX SOD DR 500 MG TABLET.DR PO ×2 (08:31→20:20)
[2025-05-14 09:04] LABS: Glucose Estimated Average 126 mg/dL (80-131); Hemoglobin A1C 6.0 % Hgb (4.8-6.0)
[2025-05-14 09:32] LABS: Lactate (Lactic Acid) 2.4 mMol/L (0.4-2.0)
--- NOTE | 2025-05-14 10:57 | ESPR_ITS ---
Documentation for date of: 05/14/25 Subjective Subjective Interval history: Patient seen and assessed in hospital bed, awake and answering questions appropriately. Patient denies having any concerning symptoms at this time. Of note, patient was white count up trended but with no clinical symptoms matching laboratory findings. Will continue to treat the patient with IV ceftriaxone and p.o. doxycycline for both UTI and pneumonia and await both blood and urine cultures. Patient remained stable at this time we will continue to monitor for any acute changes. Exam Vital Signs Temp Pulse Resp BP Pulse Ox O2 Del Method 97.6 F 95 17 132/66 H 94 L Room Air 05/14/25 08:00 05/14/25 08:31 05/14/25 08:00 05/14/25 08:31 05/14/25 08:00 05/14/25 08:00 Narrative Exam Physical Exam: GENERAL: Awake, answering questions appropriately, mild developmental delay, appears stated age HEENT: NC/AT. Moist mucosa. PERRLA/EOMI. CARDIO: Heart RRR, no obvious murmurs, no JVD. PULM: No coughing or visible SOB. Lungs CTA B/L. GI: Abdomen soft, NT/ND, +BS. SKIN/MSK/EXT: No wounds/discoloration/rashes/edema/amputations. +Pedal pulses present B/L. NEURO: Oriented x3, Moves extremities x4, no focal neurologic deficits noted. Objective Labs 05/14/25 05:09 05/14/25 05:09 Labs: Laboratory Results - last 24 hr 05/13/25 05/13/25 05/13/25 10:20 12:08 13:59 WBC 10.9 RBC 4.44 Hgb 13.7 Hct 40.1 MCV 90 MCH 30.9 MCHC 34.2 RDW Std Deviation 41.3 Plt Count 158 Neut % (Auto) 75 Lymph % (Auto) 9 L [place] % (Auto) 16 H Eos % (Auto) 0 Baso % (Auto) 0 Neut # (Auto) 8.2 H Lymph # (Auto) 1.0 [place] # (Auto) 1.7 H Eos # (Auto) 0.0 Baso # (Auto) 0.0 Immature Gran # (Auto) 0.03 H Absolute Nucleated RBC 0.00 Immature Gran % 0 Nucleated RBC % 0 Sodium 141 Potassium 4.0 Chloride 103 Carbon Dioxide 25.5 Anion Gap 13 BUN 10 Creatinine 0.8 Estim Creat Clear Calc 54.3 L eGFR > 60 BUN/Creatinine Ratio [address] Glu mg/dL Hemoglobin A1c Calculated Osmolality 284 Lactic Acid 2.6 H Calcium 9.5 Corrected Calcium 9.5 Magnesium Total Bilirubin 0.3 Direct Bilirubin AST 18 ALT < 7 L Alkaline Phosphatase 77 Ammonia Troponin I < 0.002 Total Protein 7.2 Albumin 4.2 Globulin 3.0 Albumin/Globulin Ratio 1.4 Procalcitonin 0.29 TSH Free T4 Ur Collection Type Clean Catch Urine Color Yellow Urine Clarity Cloudy A Urine pH 6.0 Ur Specific [place] 1.020 Urine Protein 1+ A Urine Glucose (UA) Negative Urine Ketones Trace Urine Blood 2+ A Urine Nitrite Positive Urine Bilirubin Negative Urine Urobilinogen (Auto) Negative Ur Leukocyte Esterase Positive Urine RBC 17 H Urine WBC 1433 H Ur Squamous Epith Cells 1 Urine Bacteria 1+ A Ur Culture Indicated? Yes 05/13/25 05/14/25 05/14/25 14:44 05:09 09:15 WBC 16.9 H D RBC 4.03 Hgb 12.5 Hct 36.6 MCV 91 MCH 31.0 MCHC 34.2 RDW Std Deviation 41.7 Plt Count 134 L Neut % (Auto) 75 Lymph % (Auto) 7 L [place] % (Auto) 17 H Eos % (Auto) 0 Baso % (Auto) 0 Neut # (Auto) 12.7 H Lymph # (Auto) 1.2 [place] # (Auto) 2.9 H Eos # (Auto) 0.0 Baso # (Auto) 0.0 Immature Gran # (Auto) 0.07 H Absolute Nucleated RBC 0.00 Immature Gran % 0 Nucleated RBC % 0 Sodium 139 Potassium 3.6 Chloride 102 Carbon Dioxide 23.7 Anion Gap 13 BUN 10 Creatinine 0.6 Estim Creat Clear Calc 72.3 eGFR > 60 BUN/Creatinine Ratio [address]ucose [address] Glu mg/dL 126 Hemoglobin A1c 6.0 Calculated Osmolality 280 Lactic Acid 2.4 H Calcium 9.0 Corrected Calcium Magnesium 1.9 Total Bilirubin 0.3 Direct Bilirubin < 0.1 AST 11 ALT < 7 L Alkaline Phosphatase 68 Ammonia < 10 L Troponin I Total Protein 6.1 Albumin 3.6 D Globulin Albumin/Globulin Ratio Procalcitonin 0.39 TSH 0.17 L Free T4 1.55 Ur Collection Type Urine Color Urine Clarity Urine pH Ur Specific [place] Urine Protein Urine Glucose (UA) Urine Ketones Urine Blood Urine Nitrite Urine Bilirubin Urine Urobilinogen (Auto) Ur Leukocyte Esterase Urine RBC Urine WBC Ur Squamous Epith Cells Urine Bacteria Ur Culture Indicated? Quality Measures Quality Measures none Assessment & Plan Assessment Current Active Medications: Generic Name Dose Route Start Last Admin Trade Name Freq PRN Reason Stop Dose Admin Acetaminophen 650 mg 05/13/25 13:51 05/13/25 18:31 Acetaminophen 325 Mg Tablet PO 06/12/25 13:50 650 mg Q6H PRN Administration Fever >101.5 Albuterol/Ipratropium 3 ml 05/13/25 13:51 Albuterol/Ipratropium (Duoneb) Rt Angely 3 Ml Nebu INH 06/12/25 18:59 Q6HRRT PRN SHORTNESS OF BREATH Amlodipine Besylate 2.5 mg 05/14/25 09:00 05/14/25 08:31 Amlodipine Besylate 2.5 Mg Tablet PO 06/13/25 08:59 2.5 mg QDAY LEANDRA Administration Divalproex Sodium 500 mg 05/13/25 21:00 05/14/25 08:[address] 500 Mg Tablet.Dr PO 06/12/25 20:59 500 mg BID LEANDRA Administration Docusate Sodium 100 mg 05/13/25 21:00 05/14/25 08:31 Docusate Sod 100 Mg Capsule PO 06/12/25 20:59 100 mg BID LEANDRA Administration Protocol Doxycycline Hyclate 100 mg 05/13/25 14:45 05/14/25 08:30 Doxycycline 100 Mg Tablet PO 05/20/25 14:44 100 mg BID LEANDRA Administration Enoxaparin Sodium 40 mg 05/13/25 14:00 05/14/25 08:30 Enoxaparin Sod Inj 40 Mg/0.4 Ml Syringe SC 05/27/25 13:59 40 mg QDAY LEANDRA Administration Hydroxyzine HCl 10 mg 05/13/25 14:15 Hydroxyzine Hcl 10 Mg Tablet PO 06/12/25 14:14 Q8H PRN ANXIETY Levothyroxine Sodium 88 mcg 05/14/25 06:00 05/14/25 05:03 Levothyroxine Sodium 88 Mcg Tablet PO 06/13/25 05:59 88 mcg ACBR LEANDRA Administration Mirtazapine 15 mg 05/13/25 21:00 05/13/25 20:29 Mirtazapine 15 Mg Tablet PO 06/12/25 20:59 15 mg QPM LEANDRA Administration Ondansetron HCl 4 mg 05/13/25 13:51 Ondansetron Inj 2 Mg/Ml Inj 2 Ml IVP 06/12/25 13:50 Q6H PRN NAUSEA OR VOMITING Protocol Pantoprazole Sodium 40 mg 05/14/25 09:00 05/14/25 08:30 Pantoprazole 40 Mg Tablet PO 06/13/25 08:59 40 mg QDAY LEANDRA Administration Quetiapine Fumarate 50 mg 05/13/25 21:00 05/13/25 20:30 Quetiapine Fumarate 25 Mg Tablet PO 06/12/25 20:59 50 mg QPM LEANDRA Administration Quetiapine Fumarate 25 mg 05/14/25 09:00 05/14/25 08:33 Quetiapine Fumarate 25 Mg Tablet PO 06/13/25 08:59 25 mg QAM LEANDRA Administration Risperidone 0.5 mg 05/13/25 21:00 05/14/25 08:30 Risperidone 0.5 Mg Tablet PO 06/12/25 20:59 0.5 mg BID LEANDRA Administration Sertraline HCl 50 mg 05/14/25 09:00 05/14/25 08:30 Sertraline Hcl 25 Mg Tablet PO 06/13/25 08:59 50 mg QAM LEANDRA Administration Sodium Chloride 1 gm 05/13/25 21:00 05/14/25 08:31 Sodium Chloride 1 Gm Tablet PO 06/12/25 20:59 1 gm BID LEANDRA Administration Plan 64-year-old male with past medical history of mental delay, hypothyroidism, essential hypertension, hyperlipidemia, bipolar disorder, possible parkinsonism and dementia brought in secondary to fever, dizziness and confusion found to have urinary tract infection and possible bilateral pneumonia, being treated with IV antibiotics and cultures pending. #Acute metabolic/infectious encephalopathy secondary to #Urinary tract infection #Possible bilateral lower lung bacterial pneumonia, community-acquired #Lactic acidosis As noted above in HPI, patient presented due to confusion, dizziness and fever as per caregiver Patient was treated with Keflex 500 mg every 8 hours for 7 days on presentation, WBC of 10.9 has uptrend 16.99 Pro-Toney is 0.39 Lactic acid uptrending from 2.4-3.1 Patient had started Keflex 500 mg every 8 hours, incorrect dose for urinary tract infection UA shows cloudy urine with positive nitrite and leukocyte esterase, hematuria, pyuria and +1 bacteria. Chest x-ray showed bilateral pneumonia, more significant in the left lung Head CT was negative for any acute findings and EKG was sinus rhythm with some left axis deviation. First set of blood cultures show gram-negative rods from aerobic bottle Plan: Continue antibiotic regimen, IV ceftriaxone 1 g daily and doxycycline 100 mg p.o. twice daily Monitor blood and cultures IV fluids for lactic acidosis, 1 L of LR over 2 hours #Hypothyroidism Patient on home levothyroxine 100 mcg Patient TSH low and free T4 high normal Plan: Started levothyroxine 88 mcg #Essential hypertension Patient on home amlodipine 5 mg p.o. twice daily Plan: Restart home medication #Developmental delay #Bipolar disorder? #Anxiety Patient's on home developed her legs 500 mg p.o. twice daily, hydroxyzine 10 mg p.o. every 8 as needed for anxiety, mirtazapine 15 mg p.o. at bedtime, Seroquel, risperidone, sertraline Plan: Restarted home medications Health Maintenance: Lines: PIV Diet: Dysphagia II Bowel: Senna GI prophylaxis: Not needed DVT prophylaxis: Lovenox Dispo: IV abx and cultures Code: Full Patient seen and examined with attending Dr. Ceci Laguerre, DO PGY-2 Internal Medicine - GME Attending Provider Attestation/Addendum Face to face evaluation was performed by me. I have personally seen and examined the patient. I discussed the assessment and plan with the entire medicine team. I reviewed available medical records, imaging studies, laboratory results. I agree with the above subjective data, objective findings, assessment and plan except as corrected by me or noted below Sister was at bedside discussed with her the plan Sepsis, present admission due to below without septic shock Suspect gram-negative urinary tract infection present admission lethargy with urinary catheter Subjective fevers Cough Possible community-acquired pneumonia Acute encephalopathy likely infectious due to above Continue with empiric antibiotics as ordered ceftriaxone azithromycin, await culture results. Mental status better monitor closely More than > 30 minutes spent on the encounter
[2025-05-14 12:24] LABS: Reflex Lactate? Y
[2025-05-14 12:53] LABS: Lactic Acid, 3 HR 3.1 mMol/L (0.4-2.0)
--- NOTE | 2025-05-14 14:55 | PC.SS ---
Rounding: Pending cultures, on IV ABX for UTI/PNA. DME Wheelchair to be ordered closer to DC per PT reccs.
[2025-05-14] MEDS: RINGERS LACTATED 1000 ML 1,000 ML 500 ML IV (14:57)
[2025-05-14 16:32] LABS: Lactate (Lactic Acid) 2.4 mMol/L (0.4-2.0)
[2025-05-14 19:34] LABS: Reflex Lactate? Y
[2025-05-14 19:56] LABS: Lactic Acid, 3 HR 3.2 mMol/L (0.4-2.0)
[2025-05-14] MEDS: MIRTAZAPINE 15 MG TABLET PO (20:21)
[2025-05-15] VITALS (8 sets, daily range): BP systolic 116–150; BP diastolic 71–81; PULSE 71–82; RESP 17–18; TEMP 36.1–37.4; O2SAT 93–96
[2025-05-15] MEDS: LEVOTHYROXINE SODIUM 88 MCG TABLET PO (05:05)
[2025-05-15 06:19] LABS: Basophils # (Auto) 0.0 Thou/mm3 (0.0-0.2); Basophils % (Auto) 0 % (0-2.5); Eosinophils # (Auto) 0.0 Thou/mm3 (0.0-0.5); Eosinophils % (Auto) 0 % (0-10); Hematocrit 36.6 % (36.0-46.0); Hemoglobin 12.4 g/dL (12.0-16.0); Immature Granulocytes Auto 0.07 Thou/mm3 (0.00-0.00); Lymphocytes # (Auto) 1.7 Thou/mm3 (1.0-4.8); Lymphocytes % (Auto) 14 % (10-50); Mean Corpuscular HGB Conc 33.9 g/dl (31.0-37.0); Mean Corpuscular Hemoglobin 30.9 pg (25.0-35.0); Mean Corpuscular Volume 91 fL (80-100); Monocytes # (Auto) 2.5 Thou/mm3 (0.0-0.8); Monocytes % (Auto) 20 % (0-12); Neutrophils # (Auto) 8.4 Thou/mm3 (1.8-7.7); Neutrophils % (Auto) 66 % (37-80); Nucleated Red Blood Cell # 0.00 Thou/mm3 (0.00-0.00); Nucleated Red Blood Cell % 0 /100 WBC (0); Platelet Count 126 Thou/mm3 (140-440); RDW Standard Deviation 41.9 fL (36.4-46.3); Red Blood Count 4.01 Miln/mm3 (4.00-5.20); White Blood Count 12.8 Thou/mm3 (3.6-11.0)
[2025-05-15] MEDS: DOXYCYCLINE 100 MG TABLET PO ×2 (08:03→20:17)
[2025-05-15] MEDS: cefTRIAXone 2 GM in SODIUM CHLORIDE 0.9% (Popper) 50 ML IV (08:03)
[2025-05-15] MEDS: DIVALPROEX SOD DR 500 MG TABLET.DR PO ×2 (08:03→20:17)
[2025-05-15] MEDS: PANTOPRAZOLE 40 MG TABLET PO (08:03)
[2025-05-15] MEDS: DOCUSATE SOD 100 MG CAPSULE PO ×2 (08:03→20:17)
[2025-05-15] MEDS: SODIUM CHLORIDE 1 GM TABLET PO ×2 (08:04→20:17)
[2025-05-15 08:07] LABS: Alanine Aminotransferase < 7 U/L (10-49); Albumin, Serum 3.4 gm/dL (3.4-4.8); Alkaline Phosphatase 61 U/L (46-116); Anion Gap 12 (7-16); Aspartate Amino Transferase 14 U/L (0-34); BUN/Creatinine Ratio 24 Ratio (12-20); Bilirubin,Direct < 0.1 mg/dL (0.0-0.3); Bilirubin,Total 0.3 mg/dL (0.3-1.2); Blood Urea Nitrogen 12 mg/dL (9-23); Calcium 9.1 mg/dL (8.3-10.6); Carbon Dioxide 25.1 mMol/L (20.0-31.0); Chloride 101 mMol/L (98-107); Creatinine (Component) 0.5 mg/dL (0.6-1.3); Estimated Creatinine Clearance 86.8 mL/min (>60); Glucose 197 mg/dL (74-106); Magnesium 2.0 mg/dL (1.6-2.6); Osmolality,Calculated 280 (275-295); Potassium 3.8 mMol/L (3.4-5.1); Sodium 138 mMol/L (136-145); Total Protein 6.1 gm/dL (5.7-8.2); eGFR > 60 See Note
[2025-05-15] MEDS: SERTRALINE HCL 25 MG TABLET 50 MG PO (08:07)
[2025-05-15] MEDS: ENOXAPARIN SOD INJ 40 MG/0.4 ML SYRINGE SC (08:08)
[2025-05-15 08:36] LABS: Lactate (Lactic Acid) 2.0 mMol/L (0.4-2.0)
[2025-05-15] MEDS: RINGERS LACTATED 1000 ML 1,000 ML 999 ML IV (09:04)
--- NOTE | 2025-05-15 09:27 | PD.RESPRO ---
Documentation for date of: 05/15/25 Subjective Subjective Interval history: No acute overnight events. Endorses mild chest pain this morning pointing at her epigastric region, no history of GERD but will start on Protonix. Updated caregiver at bedside with plan. Denies fevers, chills, shortness of breath. Urine cultures and 1/2 blood cultures grew GNR in aerobic bottle. WBC elevated but improving. Will increase IV ceftriaxone to 2 g, continue doxycycline. Follow-up urine culture sensitivities. Of note patient previously grew ESBL in urine back in 2022. Exam Vital Signs Temp Pulse Resp BP Pulse Ox O2 Del Method 98.9 F 77 17 122/72 96 Room Air 05/15/25 04:00 05/15/25 08:08 05/15/25 04:00 05/15/25 08:08 05/15/25 04:00 05/15/25 04:00 Narrative Exam Physical Exam General: Awake and in no acute distress. Conversational and non-toxic appearing. Sitting up in bed. Mild developmental delay. HEENT: Normocephalic, atraumatic, mucous membranes moist. Heart: Regular rate and rhythm, normal S1 and S2, no murmurs. Lungs: Clear to auscultation with no wheezing or crackles. Abdomen: Soft, nondistended, nontender, positive bowel sounds. No guarding or rebound tenderness. Neurologic: Alert and oriented x3, no gross neurological deficit, and patient able to move all 4 extremities. Extremities: No edema. Skin: No rash or ecchymoses. Objective Labs 05/16/25 04:36 05/16/25 04:36 Labs: Laboratory Results - last 24 hr 05/14/25 05/14/25 05/14/25 09:15 12:38 16:05 WBC RBC Hgb Hct MCV MCH MCHC RDW Std Deviation Plt Count Neut % (Auto) Lymph % (Auto) Hodgeman % (Auto) Eos % (Auto) Baso % (Auto) Neut # (Auto) Lymph # (Auto) Hodgeman # (Auto) Eos # (Auto) Baso # (Auto) Immature Gran # (Auto) Absolute Nucleated RBC Immature Gran % Nucleated RBC % Sodium Potassium Chloride Carbon Dioxide Anion Gap BUN Creatinine Estim Creat Clear Calc eGFR BUN/Creatinine Ratio Glucose Calculated Osmolality Lactic Acid 2.4 H 3.1 H 2.4 H Calcium Magnesium Total Bilirubin Direct Bilirubin AST ALT Alkaline Phosphatase Total Protein Albumin 05/14/25 05/15/25 05/15/25 19:46 05:13 08:07 WBC 12.8 H RBC 4.01 Hgb 12.4 Hct 36.6 MCV 91 MCH 30.9 MCHC 33.9 RDW Std Deviation 41.9 Plt Count 126 L Neut % (Auto) 66 Lymph % (Auto) 14 Hodgeman % (Auto) 20 H Eos % (Auto) 0 Baso % (Auto) 0 Neut # (Auto) 8.4 H Lymph # (Auto) 1.7 Hodgeman # (Auto) 2.5 H Eos # (Auto) 0.0 Baso # (Auto) 0.0 Immature Gran # (Auto) 0.07 H Absolute Nucleated RBC 0.00 Immature Gran % 1 H Nucleated RBC % 0 Sodium 138 Potassium 3.8 Chloride 101 Carbon Dioxide 25.1 Anion Gap 12 BUN 12 Creatinine 0.5 L Estim Creat Clear Calc 86.8 eGFR > 60 BUN/Creatinine Ratio 24 H Glucose 197 H Calculated Osmolality 280 Lactic Acid 3.2 H 2.0 Calcium 9.1 Magnesium 2.0 Total Bilirubin 0.3 Direct Bilirubin < 0.1 AST 14 ALT < 7 L Alkaline Phosphatase 61 Total Protein 6.1 Albumin 3.4 Quality Measures Quality Measures none Assessment & Plan Assessment Current Active Medications: Generic Name Dose Route Start Last Admin Trade Name Freq PRN Reason Stop Dose Admin Acetaminophen 650 mg 05/13/25 13:51 05/13/25 18:31 Acetaminophen 325 Mg Tablet PO 06/12/25 13:50 650 mg Q6H PRN Administration Fever >101.5 Albuterol/Ipratropium 3 ml 05/13/25 13:51 Albuterol/Ipratropium (Duoneb) Rt Angely 3 Ml Nebu INH 06/12/25 18:59 Q6HRRT PRN SHORTNESS OF BREATH Amlodipine Besylate 2.5 mg 05/14/25 09:00 05/15/25 08:08 Amlodipine Besylate 2.5 Mg Tablet PO 06/13/25 08:59 2.5 mg QDAY LEANDRA Administration Divalproex Sodium 500 mg 05/13/25 21:00 05/15/25 08:[address] 500 Mg Tablet.Dr PO 06/12/25 20:59 500 mg BID LEANDRA Administration Docusate Sodium 100 mg 05/13/25 21:00 05/15/25 08:03 Docusate Sod 100 Mg Capsule PO 06/12/25 20:59 100 mg BID LEANDRA Administration Protocol Doxycycline Hyclate 100 mg 05/13/25 14:45 05/15/25 08:03 Doxycycline 100 Mg Tablet PO 05/20/25 14:44 100 mg BID LEANDRA Administration Enoxaparin Sodium 40 mg 05/13/25 14:00 05/15/25 08:08 Enoxaparin Sod Inj 40 Mg/0.4 Ml Syringe SC 05/27/25 13:59 40 mg QDAY LEANDRA Administration Hydroxyzine HCl 10 mg 05/13/25 14:15 Hydroxyzine Hcl 10 Mg Tablet PO 06/12/25 14:14 Q8H PRN ANXIETY Ceftriaxone Sodium 2 gm/ 50 mls @ 100 mls/hr 05/15/25 07:45 05/15/25 09:01 Sodium Chloride IV 05/22/25 07:44 Infused QDAY LEANDRA Infusion Levothyroxine Sodium 88 mcg 05/14/25 06:00 05/15/25 05:05 Levothyroxine Sodium 88 Mcg Tablet PO 06/13/25 05:59 88 mcg ACBR LEANDRA Administration Mirtazapine 15 mg 05/13/25 21:00 05/14/25 20:21 Mirtazapine 15 Mg Tablet PO 06/12/25 20:59 15 mg QPM LEANDRA Administration Ondansetron HCl 4 mg 05/13/25 13:51 Ondansetron Inj 2 Mg/Ml Inj 2 Ml IVP 06/12/25 13:50 Q6H PRN NAUSEA OR VOMITING Protocol Pantoprazole Sodium 40 mg 05/14/25 09:00 05/15/25 08:03 Pantoprazole 40 Mg Tablet PO 06/13/25 08:59 40 mg QDAY LEANDRA Administration Quetiapine Fumarate 50 mg 05/13/25 21:00 05/14/25 20:19 Quetiapine Fumarate 25 Mg Tablet PO 06/12/25 20:59 50 mg QPM LEANDRA Administration Quetiapine Fumarate 25 mg 05/14/25 09:00 05/15/25 08:04 Quetiapine Fumarate 25 Mg Tablet PO 06/13/25 08:59 25 mg QAM LEANDRA Administration Risperidone 0.5 mg 05/13/25 21:00 05/15/25 08:04 Risperidone 0.5 Mg Tablet PO 06/12/25 20:59 0.5 mg BID LEANDRA Administration Sennosides 1 tab 05/14/25 14:00 Senna Tablet PO 06/13/25 13:59 QDAY PRN CONSTIPATION Protocol Sertraline HCl 50 mg 05/14/25 09:00 05/15/25 08:07 Sertraline Hcl 25 Mg Tablet PO 06/13/25 08:59 50 mg QAM LEANDRA Administration Sodium Chloride 1 gm 05/13/25 21:00 05/15/25 08:04 Sodium Chloride 1 Gm Tablet PO 06/12/25 20:59 1 gm BID LEANDRA Administration Plan Patient is a 64-year-old male with PMH of mental delay, hypothyroidism, essential hypertension, hyperlipidemia, bipolar disorder, possible parkinsonism and dementia who presented on 05/13 for 1 day history of fever, dizziness and confusion, admitted for acute metabolic/infectious encephalopathy secondary to UTI and possible bilateral pneumonia. #Acute encephalopathy, improving 2/2 #GNR UTI with bacteremia #Possible bilateral lower lung bacterial pneumonia, community-acquired #Lactic acidosis, resolved #Leukocytosis, improving Presented with confusion, dizziness and fever as per caregiver. From [facility]. Per caregiver, she was recently treated with Keflex 500 mg every 8 hours with completion of 7 day course. Admission WBC 16.9, pro-Toney is 0.39, lactic acid 3.2. UA shows cloudy urine with positive nitrite and leukocyte esterase, hematuria, pyuria and +1 bacteria. CXR showed bilateral pneumonia, more significant in the left lung. Head CT was negative for any acute findings. EKG was sinus rhythm with some left axis deviation. Urine culture positive for GNR, previously grew ESBL in 2022. First set of blood cultures show gram-negative rods from aerobic bottle. S/p CFX x1 in ED. S/p LR 1L x1. Plan: - Increase IV ceftriaxone to 2 g daily in light of bacteremia (05/15- - Continue doxycycline 100 mg p.o. twice daily (05/14- - Follow up final UCx and BCx results - Another 1L IV LR for complete resolution of lactic acidosis #Hypothyroidism Takes levothyroxine 100 mcg daily at home. 05/13: TSH 0.17 (L), T4 1.55. Plan: - Continue home dose levothyroxine 88 mcg daily #Essential hypertension Patient on home amlodipine 5 mg p.o. twice daily Plan: - Continue home dose amlodipine 5 mg daily #Developmental delay #Bipolar disorder? #Anxiety Takes divalproex 500 mg p.o. twice daily, hydroxyzine 10 mg p.o. q8hr for anxiety, mirtazapine 15 mg p.o. at bedtime, Seroquel, risperidone, sertraline at home. Plan: - Continue all home medications Health Maintenance Disposition: [facility] for management of acute cephalopathy secondary to UTI and possible PNA DVT prophylaxis: Lovenox GI prophylaxis: Protonix Diet: Dysphagia 2 CODE STATUS: Full Patient plan of care was discussed with the attending physician, Dr. Ornelas. Joyce Alba, PGY-1 Attending Provider Attestation/Addendum Face to face evaluation was performed by me. I have personally seen and examined the patient. I discussed the assessment and plan with the entire medicine team. I reviewed available medical records, imaging studies, laboratory results. I agree with the above subjective data, objective findings, assessment and plan except as corrected by me or noted below Gram-negative bacteremia Urine tract infections for gram-negative's present on mission without Kruger catheter use History of mental delay Bipolar disorder Continue empiric antibiotics ceftriaxone IV, follow culture data More than > 30 minutes spent on the encounter and in
--- NOTE | 2025-05-15 16:14 | PC.SS ---
Rounding: IV ABX, pending UA Suad DC back to [facility]
[2025-05-15] MEDS: MIRTAZAPINE 15 MG TABLET PO (20:17)
[2025-05-16] VITALS: BP 141/87; PULSE 66; RESP 18; TEMP 36.6; O2SAT 94
[2025-05-16 04:00] VITALS: BP 127/65; PULSE 68; RESP 15; TEMP 36.1; O2SAT 95
[2025-05-16 05:34] LABS: Basophils # (Auto) 0.0 Thou/mm3 (0.0-0.2); Basophils % (Auto) 0 % (0-2.5); Eosinophils # (Auto) 0.1 Thou/mm3 (0.0-0.5); Eosinophils % (Auto) 2 % (0-10); Hematocrit 30.9 % (36.0-46.0); Hemoglobin 10.4 g/dL (12.0-16.0); Immature Granulocytes Auto 0.03 Thou/mm3 (0.00-0.00); Lymphocytes # (Auto) 1.7 Thou/mm3 (1.0-4.8); Lymphocytes % (Auto) 24 % (10-50); Mean Corpuscular HGB Conc 33.7 g/dl (31.0-37.0); Mean Corpuscular Hemoglobin 30.9 pg (25.0-35.0); Mean Corpuscular Volume 92 fL (80-100); Monocytes # (Auto) 1.3 Thou/mm3 (0.0-0.8); Monocytes % (Auto) 19 % (0-12); Neutrophils # (Auto) 4.0 Thou/mm3 (1.8-7.7); Neutrophils % (Auto) 56 % (37-80); Nucleated Red Blood Cell # 0.00 Thou/mm3 (0.00-0.00); Nucleated Red Blood Cell % 0 /100 WBC (0); Platelet Count 117 Thou/mm3 (140-440); RDW Standard Deviation 42.3 fL (36.4-46.3); Red Blood Count 3.37 Miln/mm3 (4.00-5.20); White Blood Count 7.2 Thou/mm3 (3.6-11.0)
[2025-05-16] MEDS: LEVOTHYROXINE SODIUM 88 MCG TABLET PO (05:37)
[2025-05-16 06:24] LABS: Alanine Aminotransferase 8 U/L (10-49); Albumin, Serum 2.9 gm/dL (3.4-4.8); Alkaline Phosphatase 59 U/L (46-116); Anion Gap 10 (7-16); Aspartate Amino Transferase 12 U/L (0-34); BUN/Creatinine Ratio 26 Ratio (12-20); Bilirubin,Direct < 0.1 mg/dL (0.0-0.3); Bilirubin,Total 0.2 mg/dL (0.3-1.2); Blood Urea Nitrogen 13 mg/dL (9-23); Calcium 8.5 mg/dL (8.3-10.6); Carbon Dioxide 27.8 mMol/L (20.0-31.0); Chloride 103 mMol/L (98-107); Creatinine (Component) 0.5 mg/dL (0.6-1.3); Estimated Creatinine Clearance 86.8 mL/min (>60); Glucose 175 mg/dL (74-106); Magnesium 1.8 mg/dL (1.6-2.6); Osmolality,Calculated 285 (275-295); Potassium 3.9 mMol/L (3.4-5.1); Sodium 141 mMol/L (136-145); Total Protein 5.0 gm/dL (5.7-8.2); eGFR > 60 See Note
[2025-05-16 07:41] VITALS: BP 149/82; PULSE 67; RESP 15; TEMP 36.8; O2SAT 95
[2025-05-16] MEDS: cefTRIAXone 2 GM in SODIUM CHLORIDE 0.9% (Popper) 50 ML IV (09:17)
[2025-05-16 09:18] VITALS: BP 149/82; PULSE 67
[2025-05-16] MEDS: PANTOPRAZOLE 40 MG TABLET PO (09:18)
[2025-05-16] MEDS: DIVALPROEX SOD DR 500 MG TABLET.DR PO (09:18)
[2025-05-16] MEDS: DOCUSATE SOD 100 MG CAPSULE PO (09:18)
[2025-05-16] MEDS: ENOXAPARIN SOD INJ 40 MG/0.4 ML SYRINGE SC (09:18)
[2025-05-16] MEDS: SERTRALINE HCL 25 MG TABLET 50 MG PO (09:19)
[2025-05-16] MEDS: DOXYCYCLINE 100 MG TABLET PO (09:20)
[2025-05-16] MEDS: SODIUM CHLORIDE 1 GM TABLET PO (09:20)
--- NOTE | 2025-05-16 10:50 | PC.SS ---
WheelChairs Patients diagnosis creates mobility limitations that significantly impairs ability to participate in the patient?s activities of daily living either in their entirety, or in a reasonable time frame in the home and the patient?s mobility limitations can not be sufficiently resolved with an appropriately fitted cane or walker. Also the use of a manual wheelchair will sufficiently improve patient?s ability to participate in the activities of daily living in the home and the patient is willing to use the wheelchair that is provided in the home. The patient has some one in the home that is available, willing and able to provide assistance with the wheelchair.
--- NOTE | 2025-05-16 11:32 | PD.RESDS ---
Planned Discharge Date 05/16/25 DS: Providers Provider Date of admission: 05/13/25 13:51 Primary care physician: Aldo Hedrick MD Admitting Provider: Jose Ornelas MD Attending Provider on Admission: Jose Ornelas MD Consults: 05/13/25 13:54 Referral Speech Therapy Routine Comment: 05/13/25 13:55 Referral Physical Therapy Routine Comment: Physician Instructions: Attending Provider on DC: Jose Ornelas MD Discharging Provider: RESIDENT Pal DS: Diagnosis Problem List Completed Was Problem List Reviewed/Reconciled?: Yes Hospital Course Hospital Course Hospital course: Summary: Patient is a 64-year-old male with PMH of mental delay, hypothyroidism, essential hypertension, hyperlipidemia, bipolar disorder, possible parkinsonism and dementia who presented on 05/13 for 1 day history of fever, dizziness and confusion, admitted for acute metabolic/infectious encephalopathy secondary to UTI and possible bilateral pneumonia. ED Course: Vitals: BP 129/84, HR 97, RR 24, temp 102.2 F, 94% on room air. Labs: CBC unremarkable. Lactic 3.2. Procalcitonin 0.29. TSH 0.17, free T4 1.55. UA showed positive nitrite and leukoesterase, 17 RBC, 1433 WBC, 1+ bacteria. EKG showed sinus rhythm without ST or T wave abnormalities. Imaging: CXR showed bilateral pneumonia, diffuse and significant left lung. Head CT was negative for acute hemorrhage, mass effect or midline shift. Given in the ED: Ceftriaxone 2 g x 1, Tylenol at 1000 mg x 1. Reason for hospitalization: Patient is a 64-year-old male with PMH of mental delay, hypothyroidism, essential hypertension, hyperlipidemia, bipolar disorder, possible parkinsonism and dementia who presented on 05/13 for 1 day history of fever, dizziness and confusion, admitted for acute encephalopathy secondary to UTI and possible bilateral pneumonia. Lactic acidosis improved status post 1 L LR. Given 1 dose of IV ceftriaxone in ED because UA was suggestive of UTI. Urine culture and 1/2 blood cultures grew gram negative rods, however however species and sensitivities cannot be identified due to lab error. Of note patient previously grew ESBL in urine culture back in 2022. Regardless, leukocytosis and patient's symptoms improved on IV ceftriaxone 2 g (started 05/15) and doxycycline 100 mg BID (started 05/14, completed 3-day course). Will discharge patient on oral levofloxacin 750 mg daily for an additional 4 days for complete course. Repeated urine and blood cultures prior to discharge. Will notify patient via telephone call with results. Of note, TSH was low at 0.17 on 05/13, likely due to overtreatment, will discharge on lower levothyroxine dose (100 -> 88). Patient's psychiatric medications were continued inpatient, continue all outpatient. Patient was safely discharged back to [facility] assisted living. Discharge Recommendations: - Follow-up with PCP within 1 week of discharge. If you do not have appointment, please follow-up with the [facility] with Dr. Pruitt. Call [phone] to make an appointment. - Recommended to take Levofloxacin 750mg once daily for 4 days starting 05/16/2025 till 05/19/2025 - Recommended to take levothyroxine 88 mcg once daily on empty stomach early in the morning and do not take any for for at least 1 hour after taking the medication - Recommend to continue all the home medications - Recommended to stop levothyroxine 100 mcg, potassium, sodium chloride tablets, buspirone, alprazolam - Recommended to follow-up with the repeat blood and urine cultures when goes to see PCP within 1 week - Return to ED if symptoms persist or return Hospital Diagnoses: #Acute encephalopathy, resolved #GNR UTI with bacteremia #Possible bilateral lower lung bacterial pneumonia, community-acquired #Lactic acidosis, resolved #Leukocytosis, resolved #Hypothyroidism #Essential hypertension #Developmental delay #Bipolar disorder #Anxiety Disposition: Safe discharge back to [facility]. Patient plan of care was discussed with the attending physician, Dr. Ornelas. Joyce Alba, PGY-1 Time Spent with Patient Time attestation: Total time spent providing and/or coordinating discharge services: at least 30 minutes of care coordination Time spent: Greater than 30 minutes Exam Vital Signs Temp Pulse Resp BP Pulse Ox O2 Del Method 98.3 F 67 15 149/82 H 95 Room Air 05/16/25 07:41 05/16/25 09:18 05/16/25 07:41 05/16/25 09:18 05/16/25 07:41 05/16/25 07:41 Narrative Exam Physical Exam General: Awake and in no acute distress. Conversational and non-toxic appearing. Sitting up in bed. Mild developmental delay. HEENT: Normocephalic, atraumatic, mucous membranes moist. Heart: Regular rate and rhythm, normal S1 and S2, no murmurs. Lungs: Clear to auscultation with no wheezing or crackles. Abdomen: Soft, nondistended, nontender, positive bowel sounds. No guarding or rebound tenderness. Neurologic: Alert and oriented x3, no gross neurological deficit, and patient able to move all 4 extremities. Extremities: No edema. Skin: No rash or ecchymoses. Discharge Plan Plan Patient Disposition: Home w/HOME HEALTH Patient condition on transfer: Stable Care Plan Goals: - Follow-up with PCP within 1 week of discharge. If you do not have appointment, please follow-up with the [facility] with Dr. Pruitt. Call [phone] to make an appointment. - Recommended to take Levofloxacin 750mg once daily for 4days starting 05/16/2025 till 05/19/2025 - Recommended to take levothyroxine 88 mcg once daily on empty stomach early in the morning and do not take any for for at least 1 hour after taking the medication, and follow up with TSH within 4 weeks of discharge - Recommend to continue all the home medications - Recommended to stop levothyroxine 100 mcg, potassium, sodium chloride tablets, buspirone, alprazolam - Recommended to follow-up with the repeat blood and urine cultures when goes to see PCP within 1 week - Return to ED if symptoms persist or return Prescriptions/Referrals Prescriptions/Med Rec: New levofloxacin 750 mg tablet 750 mg PO QDAY Qty: 4 0RF levothyroxine 88 mcg capsule 88 mcg PO QDAY Qty: 30 0RF Continued risperidone 0.5 mg Tablet 0.5 mg PO BID metformin 500 mg tablet 500 mg PO BID divalproex 250 mg tablet,delayed release (DR/EC) 500 mg PO BID sertraline 100 mg tablet 50 mg PO DAILY amlodipine 5 mg tablet 5 mg PO DAILY quetiapine 100 mg tablet 50 mg PO BID simvastatin 20 mg tablet 20 mg PO HS mirtazapine 30 mg tablet 15 mg PO HS docusate sodium 100 mg capsule 100 mg PO BID oxybutynin chloride 5 mg tablet extended release 24hr 5 mg PO DAILY loratadine 10 mg tablet 10 mg PO DAILY Women's 50 Plus Multivitamin 400 mcg-500 mg calcium-20 mcg Tablet 1 tab PO DAILY lactulose 10 gram/15 mL solution 20 g PO BID PRN (Reason: constipation) Qty: 237 0RF Discontinued buspirone 5 mg Tablet 5 mg PO BID sodium chloride 1 gram Tablet 1,000 mg PO BID potassium chloride [Klor-Con 8] 8 mEq Tablet Extended Release 8 meq PO QDAY alprazolam [Xanax] 0.25 mg Tablet 0.25 mg PO BID PRN (Reason: Anxiety) levothyroxine 100 mcg tablet 100 mcg PO DAILY Referrals: Aldo Hedrick MD [Primary Care Provider] Patient/Caregiver Discharge Instructions Education Materials: Phenazopyridine tablets, Pneumococcal Vaccination, Urinary Tract Infections in Women, Understanding Urinary Tract ..., Preventing Common Respiratory ..., Diabetes Important Vaccines, UITs Women Print Language: Citizen Of [place] Stand Alone Forms: [employer] Award Info., Patient Portal Info Letter Discharge Order Discharge Orders: Discharge (Routine); Ordered 05/16/25 Ordered By: Joyce Alba Quality Discharge Quality Measures VTE prophylaxis Attestestation Attestation Face to face evaluation was performed by me. I have personally seen and examined the patient. I discussed the assessment and plan with the entire medicine team. I reviewed available medical records, imaging studies, laboratory results. I agree with the above subjective data, objective findings, assessment and plan except as corrected by me or noted below Gram-negative bacteremia Gram-negative urine tract i urine and blood cultures were obtainedr Grew gram-negative bacilli according to microbiology they are not able to run susceptibility?repeat cultures switch to p.o. levofloxacin PCP to follow-up on cultures patient can be discharged discussed with her as well as caregiver
--- NOTE | 2025-05-16 11:35 | PC.SS ---
Follow up note: SS met with caregiver and family at bedside. Caregiver had Amanda from detention on the phone and she is requesting pt d/c with [facility]. Patient followed up with PCP, Dr. Peralta on May 12. Clarissa from detention is requesting to utilize [employer] for DME, wheelchair. SS has sent DME order for wheelchair using [facility].
[2025-05-16 12:00] VITALS: BP 144/86; PULSE 80; RESP 18; TEMP 36.3; O2SAT 94
--- NOTE | 2025-05-16 12:55 | PD.ADDDSCHGE ---
Addendum Discharge Addendum Date of report being addended: 05/16/25 Narrative: Face to face evaluation was performed by me. I have personally seen and examined the patient. I discussed the assessment and plan with the entire medicine team. I reviewed available medical records, imaging studies, laboratory results. I agree with the above subjective data, objective findings, assessment and plan except as corrected by me or noted below Gram-negative bacteremia Urinary tract infection gram-negative bacilli present admission with Kruger catheter History of essential hypertension Blood culture and urine culture with gram-negative bacilli microbiology informed as that there was some aortic canal grew any susceptibility, repeat blood and urine cultures changed to p.o. levofloxacin for another 4 days once a day to finish 7-day course. Primary care physician follow-up with cultures this was discussed with patient as well as caregiver upon discharge More than > 30 minutes spent on the encounter
[2025-05-16 15:55] VITALS: BP 133/88; PULSE 80; RESP 17; TEMP 36.6; O2SAT 95
--- NOTE | 2025-05-17 12:11 | PC.CM ---
Patient discharged yesterday and they wanted [facility]. I sent referral via [employer]. [facility] accepted and they will open patient tomorrow 05/18.
== END 2025-05-16 17:28 | disposition home health service (06) | DRG 871 ==
LOC: SERX 14:04 → SERHOLD 14:25 → S3SX 15:40
PROVIDERS: Nurse Practitioner Family; Admitting Provider Internal Medicine; Emergency Provider Family Medicine; PCP Student in an Organized Health Care Education/Training Program; Visit Provider Internal Medicine
DX: A41.50 Gram-negative sepsis, unspecified (principal); G93.41 Metabolic encephalopathy; J18.9 Pneumonia, unspecified organism; N39.0 Urinary tract infection, site not specified; E87.20 Acidosis, unspecified; E78.5 Hyperlipidemia, unspecified; I10 Essential (primary) hypertension; E03.9 Hypothyroidism, unspecified; G20.C Parkinsonism, unspecified; F31.9 Bipolar disorder, unspecified; R62.50 Unspecified lack of expected normal physiological development in childhood; F41.9 Anxiety disorder, unspecified; F70 Mild intellectual disabilities; Z79.890 Hormone replacement therapy; Z79.84 Long term (current) use of oral hypoglycemic drugs; Z79.899 Other long term (current) drug therapy
CPT/HCPCS: 36415; 70450; 71045; 80048; 80053; 80076; 81001; 82140; 83036; 83605; 83735; 83880; 84145; 84439; 84443; 84484; 85025; 85610; 85730; 87040; 87077; 87081; 87086; 87186; 87205; 87400; 87635; 87811; 89220; 92610; 93005; 96365; 96366; 97162; 99284; A9270; J0696; J1650; J7050; J7120; 94640